=== PATIENT | female | born 1945 | race African-American/Black ===

== ENCOUNTER → 2016-10-16 | Outpatient (CLI) | payer MEDICARE ==
--- NOTE | ~2016-10-16 | MY29 ---
[facility] A Service of [facility] / [facility] RADIOLOGY TEXT RESULTS PATIENT: TUNG GARCIA LOCATION: [facility] : 41 UNIT #: [id number] AGE: [address]: Anjel Romano MD SEX: F ORDER DR: [id number] [place], [place] [address] [id number] MR#: [id number] Acc #: [id number] NAME: TUNG GARCIA : 1945 SEX: F STUDY DATE/TIME: 10/16/2016 15:26 UNIT: [facility] ROOM: STUDY DESCRIPTION: MY [facility] SCREENING W/ CAD BILAT Attending Physician: Anjel Romano M.D. Referring Physician: Anjel Romano M.D. Ordering Physician: Anjel Romano M.D. Primary Care Physician: Anjel Romano M.D. MEDICAL IMAGING REPORT This report is preliminary unless electronic signature is present EXAM Digital screening mammogram with CAD INDICATIONS Routine screening. TECHNIQUE Bilateral CC and MLO views obtained on a digital mammography unit. FDA-approved CAD device utilized. COMPARISON STUDIES 09/16/2015. FINDINGS Scattered fibroglandular density. No dominant mass or suspicious calcification. IMPRESSION Negative screening mammogram, screen interval 1 year suggested. BIRADS: 2 Benign Finding. Patients over the age of 40 are entered into a reminder system with target due date for the next mammogram. A result letter will also be sent to the patient. Dictated by... Sorin Villanueva M.D. THIS IS AN ELECTRONICALLY VERIFIED REPORT Sorin Villanueva M.D. at 10/18/2016 7:12 AM EED/pcl [facility] A Service of [facility] RADIOLOGY TEXT RESULTS PATIENT: TUNG GARCIA LOCATION: [facility] : 41 UNIT #: [id number] AGE: [address]: Anjel Romano MD SEX: F ORDER DR: TD: 10/17/2016 18:11 JOB #: [id number] MEDICAL IMAGING REPORT Page 1 of 1 COPY
== END | disposition home or self-care (01) ==
LOC: CWCC 14:58
DX: Z12.31 Encounter for screening mammogram for malignant neoplasm of breast (principal)
CPT/HCPCS: G0202